=== PATIENT | male | born 1965 | race Caucasian/White ===

== ENCOUNTER 2017-07-28 22:18 | Inpatient (IN) | payer BC ==
[~2017-07-28 22:18] MED LIST: LORazepam 2 MG/ML VIAL ONE; WATER FOR INJ,STERILE 10 ML ONE; ZIPRASIDONE MESYLA 20 MG/VIAL IM ONE
[2017-07-28 22:55] LABS: Absolute Lymphocytes (CBC) 2.4 K/uL (0.7-4.9); Absolute Monocytes 0.4 K/uL (0.1-1.3); Absolute Neutrophil 3.5 K/uL (1.8-8.0); Basophils % 1.1 % (0-1.3); Eosinophils % 5.6 % (0-4.4); Hematocrit 45.8 % (39.6-49.0); Lymphocytes % 35.2 % (15.3-44.8); MCH 30.6 pg (27.0-35.0); MCV 90.3 fL (80-100); MPV 8.4 fL (7.6-11.3); Monocytes % 6.3 % (3.3-12.3); RBC Red Blood Cell Count 5.07 M/uL (4.33-5.43)
[2017-07-28 23:05] LABS: Protime INR 0.9
[2017-07-28 23:08] LABS: Potassium 3.7 mEq/L (3.6-5.0)
[2017-07-28] MEDS ORDERED: ASPIRIN 81 MG CHEWABLE TABLET ONE (23:08)
[2017-07-28] MEDS ORDERED: NITROGLYCERIN 0.4 MG/TAB SL ONE (23:09)
[2017-07-28 23:14] LABS: Albumin 4.6 g/dL (3.2-5.5); Bilirubin Direct 0.1 mg/dL (0-0.2); Bilirubin Total 0.5 mg/dL (0.3-1.2); Magnesium 1.9 mg/dL (1.8-2.5); Protein, Total 7.6 g/dL (6.0-8.3)
[2017-07-28 23:24] LABS: CKMB Creatine Kinase MB 20.3 ng/ml (0.3-4.0)
--- NOTE | 2017-07-28 23:28 | ER ---
Nurse's Notes [facility] Name: Blue Nettles Age: 52 yrs Sex: Male : 1965 Arrival Date: 07/28/2017 Time: 22:21 Bed 17 Private MD: Diagnosis: Non-ST elevation (NSTEMI) myocardial infarction Presentation: 07/28 22:36 Presenting complaint: Patient states: "I'm having chest pain for the past two day that ao comes and goes. Today is getting worst. I had a history of heart attacks and with two stents." Patient states pain is stabbing in the sternal area. Patient is negative for nausea and vomiting, but report vomiting two days ago. Transition of care: patient was not received from another setting of care. Onset of symptoms is unknown. Initial Sepsis Screen: Does the patient meet any 2 criteria? No. Patient's initial sepsis screen is negative. Does the patient have a suspected source of infection? No. Patient's initial sepsis screen is negative. Care prior to arrival: None. 22:36 Method Of Arrival: Ambulatory ao 22:36 Acuity: MAY 3 ao Triage Assessment: 22:42 General: Appears in no apparent distress. uncomfortable, Behavior is agitated. Pain: ao Complains of pain in chest Pain radiates to left arm Pain currently is 6 out of 10 on a pain scale. EENT: No signs and/or symptoms were reported regarding the EENT system. Neuro: Level of Consciousness is awake, alert, obeys commands, Oriented to person, place, time, situation, Appropriate for age Cafe Assistant are equal bilaterally Moves all extremities. Gait is steady, Speech is normal, Facial symmetry appears normal. Cardiovascular: Capillary refill < 3 seconds Patient's skin is warm and dry. Respiratory: Airway is patent Respiratory effort is even, unlabored, Respiratory pattern is regular, symmetrical. GI: Abdomen is non-distended. : No signs and/or symptoms were reported regarding the genitourinary system. Derm: No signs and/or symptoms reported regarding the dermatologic system. Musculoskeletal: No signs and/or symptoms reported regarding the musculoskeletal system. Historical: - Allergies: 22:41 No Known Allergies; ao - Home Meds: 22:41 None [Active]; ao - PMHx: 22:41 DUMONT; ao - PSHx: 22:41 stents X 2; ao - Immunization history:: Adult Immunizations up to date. - Social history:: Smoking status: Patient uses tobacco products, Patient uses alcohol, occasionally. only on a social basis. Patient/guardian denies using street drugs. Screenin:44 Abuse screen: Denies threats or abuse. Denies injuries from another. Nutritional ao screening: No deficits noted. Tuberculosis screening: No symptoms or risk factors identified. Fall Risk None identified. Assessment: 22:43 General: See triage assessment. ao 22:44 Pain: Pain began suddenly. ao 23:40 Reassessment: Patient appears in no apparent distress at this time. No changes from ao previously documented assessment. Patient and/or family updated on plan of care and expected duration. Pain level reassessed. Patient is alert, oriented x 3, equal unlabored respirations, skin warm/dry/pink. Patient to stay in the Hospital. Patient agree with the POC. Dr Wheeler has talk to patient. Vital Signs: 22:39 BP 186 / 106; Pulse 95; Resp 20; Temp 97.6(O); Pulse Ox 98% on R/A; Weight 99.79 kg ao (R); Height 6 ft. 3 in. (190.50 cm) (R); Pain 6/10; 23:40 BP 156 / 87; Pulse 80; Resp 16; Pulse Ox 97% on R/A; Pain 0/10; ao 07/29 00:45 BP 140 / 78; Pulse 68; Resp 16; Pulse Ox 98% on R/A; Pain 0/10; ao 07/28 22:39 Body Mass Index 27.50 (99.79 kg, 190.50 cm) ao ED Course: 07/28 22:21 Patient arrived in ED. es 22:29 Jarrett Velázquez, RN is Primary Nurse. ao 22:36 Rogelio Wheeler MD is Attending Physician. tw4 22:39 Triage completed. ao 22:39 Arm band placed on right wrist. Patient placed in an exam room, on a stretcher, on ao oxygen, on desk monitor, on pulse oximetry. 22:44 Patient has correct armband on for positive identification. teletypesetter monitor on. Pulse ao ox on. NIBP on. 22:44 Patient maintains SpO2 saturation greater than 95% on room air. ao 22:45 Inserted saline lock: 20 gauge in right antecubital area, using aseptic technique. ao ,using aseptic technique. By JAMISON Hutchins Blood collected. 22:52 X-ray completed. Portable x-ray completed in exam room. Patient tolerated procedure ag1 well. 22:54 XRAY Chest (1 view) In Process Unspecified. EDMS 23:25 Notified ED physician of a critical lab result(s). CKMB 20.3 Troponin 0.50. la1 23:26 Dennis Crowe MD is Hospitalizing Provider. tw4 07/29 01:12 No provider procedures requiring assistance completed. Patient admitted, IV remains in ao place. Administered Medications: 07/28 23:11 Drug: Aspirin Chewable Tablet 324 mg Route: PO; ao 23:47 Follow up: Response: No adverse reaction ao 23:12 Drug: Nitroglycerin 0.4 mg Route: Sublingual; ao 23:47 Follow up: Response: Pain is decreased; Pain is decreased. Patient didnt required a 3rd ao dose 23:46 Drug: Lovenox 1 mg/kg Route: Sub-Q; Site: abdomen; ao 07/29 00:50 Follow up: Response: No adverse reaction ao 07/28 23:47 Drug: Lopressor 5 mg Route: IVP; Site: right antecubital; ao 07/29 00:04 Drug: Lopressor 5 mg Route: IVP; Site: right antecubital; ao 00:15 Drug: Lopressor 5 mg Route: IVP; Site: right antecubital; ao 00:50 Follow up: Response: No adverse reaction ao Outcome: 07/28 23:27 Decision to Hospitalize by Provider. tw4 07/29 01:13 Admitted to Tele accompanied by tech, room 415, with chart, Report called to JAMISON Fairbanks Condition: stable Instructed on the need for admit. 01:23 Patient left the ED. ao Signatures: Dispatcher [employer] EDMS Penny Youssef Lee RN RN Twyla Liang 1 Jarrett Velázquez RN RN ao Wadley, Terrence, MD MD tw4
--- NOTE | 2017-07-28 23:28 | EDPHYS ---
Physician Documentation [facility] Name: Blue Nettles Age: 52 yrs Sex: Male : 1965 Arrival Date: 07/28/2017 Time: 22:21 Bed 17 Private MD: ED Physician Rogelio Wheeler HPI: 07/29 00:06 This 52 yrs old Male presents to ER via Ambulatory with complaints of Chest tw4 Pain. 00:06 The patient or guardian reports chest pain that is located primarily in the anterior tw4 chest wall, left. Onset: today. The pain does not radiate. Associated signs and symptoms: Pertinent positives: dizziness, syncope. The chest pain is described as crushing. Duration: The patient or guardian reports a single episode, that is still ongoing, but improving. Modifying factors: The symptoms are alleviated by nothing. the symptoms are aggravated by nothing. Severity of pain: At its worst the pain was severe in the emergency department the pain has improved is a 2 / 10. The patient has experienced a previous episode, and the symptoms today are exactly the same, similar symtpoms when pt had acute [place]. Historical: - Allergies: 07/28 22:41 No Known Allergies; ao - Home Meds: 22:41 None [Active]; ao - PMHx: 22:41 DUMONT; ao - PSHx: 22:41 stents X 2; ao - Immunization history:: Adult Immunizations up to date. - Social history:: Smoking status: Patient uses tobacco products, Patient uses alcohol, occasionally. only on a social basis. Patient/guardian denies using street drugs. ROS: 07/29 00:06 Constitutional: Negative for fever, chills, and weight loss, Respiratory: Negative for tw4 shortness of breath, cough, wheezing, and pleuritic chest pain, Abdomen/GI: Negative for abdominal pain, nausea, vomiting, diarrhea, and constipation, Back: Negative for injury and pain, MS/Extremity: Negative for injury and deformity, Skin: Negative for injury, rash, and discoloration, Neuro: Negative for headache, weakness, numbness, tingling, and seizure. Cardiovascular: Positive for chest pain, Negative for edema, orthopnea, palpitations. Exam: 00:06 Constitutional: This is a well developed, well nourished patient who is awake, alert, tw4 and in no acute distress. Head/Face: Normocephalic, atraumatic. Chest/axilla: Normal chest wall appearance and motion. Nontender with no deformity. No lesions are appreciated. Cardiovascular: Regular rate and rhythm with a normal S1 and S2. No gallops, murmurs, or rubs. Normal PMI, no JVD. No pulse deficits. Respiratory: Lungs have equal breath sounds bilaterally, clear to auscultation and percussion. No rales, rhonchi or wheezes noted. No increased work of breathing, no retractions or nasal flaring. Abdomen/GI: Soft, non-tender, with normal bowel sounds. No distension or tympany. No guarding or rebound. No evidence of tenderness throughout. Back: No spinal tenderness. No costovertebral tenderness. Full range of motion. MS/ Extremity: Pulses equal, no cyanosis. Neurovascular intact. Full, normal range of motion. Neuro: Awake and alert, GCS 15, oriented to person, place, time, and situation. Cranial nerves II-XII grossly intact. Motor strength 5/5 in all extremities. Sensory grossly intact. Cerebellar exam normal. Normal gait. 00:06 ECG was reviewed by the Attending Physician. Vital Signs: 07/28 22:39 BP 186 / 106; Pulse 95; Resp 20; Temp 97.6(O); Pulse Ox 98% on R/A; Weight 99.79 kg ao (R); Height 6 ft. 3 in. (190.50 cm) (R); Pain 6/10; 23:40 BP 156 / 87; Pulse 80; Resp 16; Pulse Ox 97% on R/A; Pain 0/10; ao 07/29 00:45 BP 140 / 78; Pulse 68; Resp 16; Pulse Ox 98% on R/A; Pain 0/10; ao 07/28 22:39 Body Mass Index 27.50 (99.79 kg, 190.50 cm) ao MDM: 07/28 22:36 Patient medically screened. tw4 07/29 00:09 Differential diagnosis: acute pericarditis, anxiety, coronary artery disease pulmonary tw4 embolus, thoracic aortic disection. Data reviewed: vital signs, nurses notes. Data interpreted: Pulse oximetry: Interpretation: normal. Test interpretation: by ED physician or midlevel provider: ECG. Counseling: I had a detailed discussion with the patient and/or guardian regarding: the historical points, exam findings, and any diagnostic results supporting the discharge/admit diagnosis, lab results. Physician consultation: Dennis Crowe MD regarding admission, to the telemetry unit. need to come to ED to see patient, and will see patient in ED. Admission orders: after a detailed discussion of the patient's condition and case, the admit orders are written by me. ED course: Pt given aspirin, Lovenox, beta blockers and nitroglycerin in the ED states that he feels better. 07/28 22:36 Order name: Basic Metabolic Panel 07/28 22:36 Order name: BNP; Complete Time: 23:21 07/28 22:36 Order name: CBC with Diff; Complete Time: 23:21 07/28 22:36 Order name: Ckmb 07/28 22:36 Order name: CPK 07/28 22:36 Order name: LFT's 07/28 22:36 Order name: Magnesium 07/28 22:36 Order name: PT-INR 07/28 22:36 Order name: Ptt, Activated 07/28 22:36 Order name: Troponin (emerg Dept Use Only) 07/28 22:36 Order name: XRAY Chest (1 view) 07/28 22:36 Order name: EKG; Complete Time: 22:37 07/28 22:36 Order name: Cardiac monitoring; Complete Time: 23:07 07/28 22:36 Order name: EKG - Nurse/Tech; Complete Time: 23:07 07/28 22:36 Order name: IV Saline Lock; Complete Time: 23:07 07/28 22:36 Order name: Labs collected and sent; Complete Time: 23:07 07/28 22:36 Order name: O2 Per Protocol; Complete Time: 23:07 07/28 22:36 Order name: O2 Sat Monitoring; Complete Time: 23:07 07/28 22:36 Order name: Urine Dipstick-Ancillary (obtain specimen); Complete Time: 01:12 tw4 EC:06 Rate is 96 beats/min. Rhythm is regular. QRS [place] is Normal. AL interval is normal. QRS tw4 interval is normal. QT interval is normal. No Q waves. T waves are Inverted in leads V4, V5, V6. No ST changes noted. Clinical impression: Lateral [place] - age indeterminate. Interpreted by me. Reviewed by me. Administered Medications: 07/28 23:11 Drug: Aspirin Chewable Tablet 324 mg Route: PO; ao 23:47 Follow up: Response: No adverse reaction ao 23:12 Drug: Nitroglycerin 0.4 mg Route: Sublingual; ao 23:47 Follow up: Response: Pain is decreased; Pain is decreased. Patient didnt required a 3rd ao dose 23:46 Drug: Lovenox 1 mg/kg Route: Sub-Q; Site: abdomen; ao 07/29 00:50 Follow up: Response: No adverse reaction ao 07/28 23:47 Drug: Lopressor 5 mg Route: IVP; Site: right antecubital; ao 07/29 00:04 Drug: Lopressor 5 mg Route: IVP; Site: right antecubital; ao 00:15 Drug: Lopressor 5 mg Route: IVP; Site: right antecubital; ao 00:50 Follow up: Response: No adverse reaction ao Disposition: 07/28/17 23:27 Hospitalization ordered by Dennis Crowe for Inpatient Admission. Preliminary diagnosis is Non-ST elevation (NSTEMI) myocardial infarction. - Bed requested for Telemetry/MedSurg (Inpatient). - Status is Inpatient Admission. ao - Condition is Fair. - Problem is an ongoing problem. - Symptoms are unchanged. UTI on Admission? No Signatures: Dispatcher [employer] Lidia Villagran RN RN kl Ortiz, Alex, RN RN ao Wadley, Terrence, MD MD tw4
[2017-07-28] MEDS ORDERED: METOPROLOL TARTRATE 5 MG/5 ML INJ IV ONE (23:40)
[2017-07-28] MEDS ORDERED: ENOXAPARIN 100 MG/ML SYR SQ ONE (23:40)
--- NOTE | 2017-07-29 00:14 | P.HP ---
Certification for Inpatient Patient admitted to: Inpatient With expected LOS: >2 Midnights Practitioner: I am a practitioner with admitting privileges, knowledge of patient current condition, hospital course, and medical plan of care. Services: Services provided to patient in accordance with Admission requirements found in Title 42 Section 412.3 of the Code of Federal Regulations Patient History Date of Service: 07/28/17 Reason for admission: NSTEMI History of Present Illness: Mr Nettles is a 52 years old male with history of HTN, CAD S/P SC with stent placement about 8 years ago, tobacco abuse, hypercholesterolemia, who start with chest pain 2 days ago. The pain is comes and go, pressure like, similar to previous SC, lasting for about 2 hours, intensity 8/10, associated with nausea, SOB and diaphoretic episodes. Today, the pain was more severe, and came to ED for evaluation. He has not been taking his medication for a wide. At arrival he received nitro SL x 2, subsequently, chest pain resolved. Initial troponin I 0.58, EKG shows ST depression on anterolateral leads. Home medications list reviewed: Yes - Past Medical/Surgical History -: CAD -: dyslipidemia -: HTN -: tobacco abuse -: stenting - Family History Family History: Reviewed- Non-Contributory - Social History Smoking Status: Current every day smoker Counseled patient to stop smoking for: less than 10 minutes Smoking therapy provided: Yes Patient receptive to therapy: Yes Review of Systems 10-point ROS is otherwise unremarkable Physical Examination - Physical Exam General: Alert, In no apparent distress HEENT: Atraumatic, PERRLA, Mucous membr. moist/pink, EOMI, Sclerae nonicteric Neck: Supple, 2+ carotid pulse no bruit, No LAD, Without JVD or thyroid abnormality Respiratory: Clear to auscultation bilaterally, Normal air movement Cardiovascular: Regular rate/rhythm, Normal S1 S2 Gastrointestinal: Normal bowel sounds, No tenderness Musculoskeletal: No tenderness Integumentary: No rashes Neurological: Normal speech, Normal strength at 5/5 x4 extr, Normal tone, Normal affect Lymphatics: No axilla or inguinal lymphadenopathy - Studies Laboratory Data (last 24 hrs) 07/28/17 22:40: PT 10.6, INR 0.90, APTT 27.4 07/28/17 22:40: WBC 6.7, Hgb 15.5, Hct 45.8, Plt Count 252 07/28/17 22:40: B-Natriuretic Peptide 57 07/28/17 22:40: Sodium 139, Potassium 3.7, BUN 14, Creatinine 1.07, Glucose 122 H, Magnesium 1.9, Total Bilirubin 0.5, AST 35, ALT 30, Alkaline Phosphatase 80 Assessment and Plan - Problems (Diagnosis) (1) CAD (coronary artery disease) Current Visit: Yes Status: Acute Qualifiers: Coronary Disease-Associated Artery/Lesion type: [place] artery [place] vs. transplanted heart: [place] heart Associated angina: with unstable angina Qualified Code(s): I25.110 - Atherosclerotic heart disease of [place] coronary artery with unstable angina pectoris (2) NSTEMI (non-ST elevated myocardial infarction) Current Visit: Yes Status: Acute (3) Hypercholesterolemia Current Visit: Yes Status: Acute (4) HTN (hypertension) Current Visit: Yes Status: Acute Qualifiers: Hypertension type: essential hypertension Qualified Code(s): I10 - Essential (primary) hypertension (5) Tobacco abuse Current Visit: Yes Status: Acute - Plan Mr Nettles will be admitted to the hospital due to typical chest pain with increased cardiac markers and abnormal EKG, consistent with a NSTEMI. Will start full dose lovenox, ASA, Brilinta loading dose, statins, wave beta kwesi due to HR in the lower side. Consult cardiology team. - Advance Directives Does patient have a Living Will: No Does patient have a Durable POA for Healthcare: No - Code Status/Comfort Care Code Status Assessed: Yes Code Status: Full Code
[2017-07-29] MEDS ORDERED: ACETAMINOPHEN 500 MG TAB PO PRN (01:28)
[2017-07-29] MEDS ORDERED: ONDANSETRON 4 MG/2 ML VIAL IV PRN (01:28)
[2017-07-29] MEDS ORDERED: TICAGRELOR 90 MG TABLET PO ONE ×3 (01:28→12:48)
[2017-07-29 01:36] VITALS: BMI 27.2
--- NOTE | 2017-07-29 07:02 | EKG ---
Test Date: 2017-07-28 Test Time: 22:32:57 Curtain Roller Assembler: [place] MEASUREMENT RESULTS: Intervals: Rate: 96 OK: 162 QRSD: 70 QT: 346 QTc: 437 [place]: P: 56 OK: 162 QRS: -1 T: 213 INTERPRETIVE STATEMENTS: Normal sinus rhythm Septal infarct, age undetermined ST & T wave abnormality, consider lateral ischemia Abnormal ECG No previous ECG available for comparison Electronically Signed On 07-29-17 07:01:15 CDT by Aries Rivas
--- NOTE | 2017-07-29 08:11 | RAD REPORT ---
EXAM DESCRIPTION: Elsa Single View07/28/2017 10:53 pm CLINICAL HISTORY: Chest pain COMPARISON: none FINDINGS: The lungs appear clear of acute infiltrate. The heart is normal size IMPRESSION: No acute abnormalities displayed
[2017-07-29] MEDS ORDERED: ASPIRIN 81 MG CHEWABLE TABLET PO SCH (09:00)
[2017-07-29] MEDS: ASPIRIN 81 MG CHEWABLE TABLET PO SCH (09:00)
[2017-07-29] MEDS: NICOTINE 21 MG/PAT TD SCH (09:00)
[2017-07-29] MEDS ORDERED: ENOXAPARIN 40 MG/0.4 ML SQ SCH (09:00)
[2017-07-29] MEDS ORDERED: NA CHLORIDE 0.9% 500 ML ONE (11:42)
[2017-07-29] MEDS ORDERED: ATROPINE SULF 1 MG/10 ML SYR IV ONE (11:43)
[2017-07-29] MEDS ORDERED: HEPARIN 5000 UNIT/ML 1 ML VIAL ONE (11:43)
[2017-07-29] MEDS ORDERED: NICARDIPINE HCL 25 MG/10 ML IV ONE (11:43)
[2017-07-29] MEDS ORDERED: NA CHLORIDE 0.9% 50 ML ONE (11:43)
[2017-07-29] MEDS ORDERED: MIDAZOLAM HCL 2 MG/2 ML INJ ONE ×3 (11:53→12:05)
--- NOTE | 2017-07-29 13:05 | CON ---
Chief Complaint: Chest pain. History Of Present Illness: Mr. Nettles started having chest pain several weeks ago. He believed it was indigestion, did not seek medical attention until he had 2 hours or more long episode of the c hest pain, tightness, pressure, squeezing, sweating, feeling nauseated. He came to the ER. Electroc ardiograms were not suggestive of an acute infarction, but he had evidence of an old septal infarctio n in 2009. He did have an CO. He was treated with a [facility] an emergency blue nt. He had 2 stents placed in his LAD for ST-elevation CO. Since then, he has dropped out of [employer] coverage. He took medicines for several years, underwent a cardiac cath in about 2012 and was told that his stents look good, but he had disease in small vessels that were too small to get a stent. He has been under medical therapy until about a year ago when he quit taking all of his medicines and then came to our emergency room. He is on no medicines now. Reports no allergies. He is a regular tobacco user. He uses modest amount of alcohol. No illegal drugs. He says the reason he gets off medicines because his job requires to move a lot, so he will often lose contact with the doctor and saniya mayes dismissed from her care because of poor compliance. He does not make much of an effort to find new doctors wherever he is. He is on no outpatient medications. Since being in the hospital, he has re ceived Lovenox, Lipitor, aspirin, and Brilinta. He is not having any chest pain now. His troponins have gone up to over 3. Physical Examination: HEENT: Normal. General: He is alert, oriented, pleasant, cooperative, not in distress. Lungs: Clear. Heart: Within normal limits. Extremities: Normal. No cyanosis, clubbing, or edema. Laboratory Data: Complete blood count is normal. Creatinine is 1.07. Highest troponin is 3.25. Impression: The patient has had a non-ST elevation myocardial infarction. He needs to have a cardia c cath, probably another intervention. We will do that today. We will withhold any further Lovenox. ALEIDA/YAAKOVL Voice ID: [id number] Report ID: [id number]
--- NOTE | 2017-07-29 16:34 | P.PN ---
Subjective Date of Service: 07/29/17 Chief Complaint: NSTEMI Pt seen and examined with RN. Chart reviewed and case d/w with Cardiology. Currently S/p cardiac cath with stent placement in LAD. No c/o at this time. Tolerated procedure well. Review of Systems General: As per HPI Physical Examination - Vital Signs Temperature: 97.9 F Blood Pressure: 150/75 Pulse: 70 Respirations: 16 Pulse Ox (%): 97 - Physical Exam General: Alert, In no apparent distress HEENT: Atraumatic, PERRLA, EOMI Neck: Supple, JVD not distended Respiratory: Clear to auscultation bilaterally, Normal air movement Cardiovascular: Regular rate/rhythm, Normal S1 S2, Other (Inguinal area tapped. ) Gastrointestinal: Normal bowel sounds, No tenderness Musculoskeletal: No tenderness Integumentary: No rashes Neurological: Normal speech, Normal tone, Normal affect Lymphatics: No axilla or inguinal lymphadenopathy - Studies Laboratory Data (last 24 hrs) 07/28/17 22:40: PT 10.6, INR 0.90, APTT 27.4 07/28/17 22:40: WBC 6.7, Hgb 15.5, Hct 45.8, Plt Count 252 07/28/17 22:40: B-Natriuretic Peptide 57 07/28/17 22:40: Sodium 139, Potassium 3.7, BUN 14, Creatinine 1.07, Glucose 122 H, Magnesium 1.9, Total Bilirubin 0.5, AST 35, ALT 30, Alkaline Phosphatase 80 Medications List Reviewed: Yes Assessment & Plan - Problems (Diagnosis) (1) NSTEMI (non-ST elevated myocardial infarction) Onset Date: 07/29/17 Current Visit: Yes Status: Acute Plan: Chest Pain with Elevated Troponin and Nonspecific EKG changes. -S/P cardiac cath now. -Stent Placement in the LAD. -Currently on ASA, Brilinta, Valsartan, BB and Lipitor -Cardiology consulted. Reccs appreciated. (2) CAD (coronary artery disease) Onset Date: 07/29/17 Current Visit: Yes Status: Chronic Qualifiers: Coronary Disease-Associated Artery/Lesion type: [place] artery [place] vs. transplanted heart: [place] heart Associated angina: with unstable angina Qualified Code(s): I25.110 - Atherosclerotic heart disease of [place] coronary artery with unstable angina pectoris (3) HTN (hypertension) Onset Date: 07/29/17 Current Visit: Yes Status: Chronic Qualifiers: Hypertension type: essential hypertension Qualified Code(s): I10 - Essential (primary) hypertension (4) Hypercholesterolemia Onset Date: 07/29/17 Current Visit: Yes Status: Chronic (5) Tobacco abuse Onset Date: 07/29/17 Current Visit: Yes Status: Chronic Discharge Plan: Home Plan to discharge in: 48 Hours - Code Status/Comfort Care Code Status Assessed: Yes Critical Care: No
[2017-07-29] MEDS: METOPROLOL TAR 25 MG TAB PO SCH (17:07)
[2017-07-29] MEDS ORDERED: ACETAMINOPHEN 325 MG TABLET PO PRN (18:37)
[2017-07-29] MEDS ORDERED: NITROGLYCERIN 0.4 MG/TAB SL PRN (18:39)
[2017-07-29] MEDS ORDERED: ATORVASTATIN 80 MG TAB PO SCH (21:00)
[2017-07-29] MEDS: NA CHLORIDE 0.9% 1,000 ML IV SCH (21:04)
[2017-07-29] MEDS: TICAGRELOR 90 MG TABLET PO SCH (21:05)
[2017-07-29 23:20] VITALS: O2SAT 99
--- NOTE | 2017-07-30 00:06 | OP ---
Surgeon: Aries Rivas MD Additional Attending Physician: Dennis Denton M.D. Procedures: Left heart catheterization, coronary left ventricular angiography, coronary angioplasty of mid left anterior descending stenosis, and 90% stenosis just proximal to his old stent was present . There were thrombus, haziness. It was successfully stented with a 3.5 x 20 stent. Procedure Findings: The patient has diffuse moderate disease in the circumflex and right coronary. The LAD is fairly healthy looking, except in its midportion just proximal to an old stent. The left main is free of disease. After the stent, there was 0% residual stenosis. Left ventricular angiogra m was within normal limits. Left ventricular end-diastolic pressure was normal. 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 Right radial artery was used. The tissues above the artery were anesthetized with 1% lidocaine. A 21-gauge needle was used to enter the artery, a 0.021 inch diameter guidewire, modified Seldinger technique, 6-[place] Terumo sheath. Once it was in place, it was flushed and a radial cocktail was gi rosario consisting of nicardipine, heparin, and nitroglycerin. It was given intra-arterially. We guided a diagnostic TIG catheter into the ascending aorta using a Terumo Glidewire with a short radius J-ti p and fluoroscopy. We used this catheter to angiogram right and left coronaries, left ventricle. We used a 260 cm exchange J-wire to exchange the TIG catheter for a guide catheter. Angiomax was given and activated clotting time was demonstrated to be more than 300 seconds. The guide catheter was an Ikari left 4 with side holes. We predilated with the balloon with 3.0 x 15 Emerge. We used the Cou gar 0.014 inch diameter guidewire to cross the lesion. This gave us excellent support. After predil ation, it was without much resistance, but the stent went into place. It was a 3.5 x 20 Synergy, inf lated to 14 atmospheres. There were no complications from the procedure. Post stent angiogram showe d no significant stenosis in the LAD. Catheters and wires were removed. The catheter was removed ov er an exchange length J-wire. The sheath was flushed, removed, and a TR band was used to close the a rteriotomy. Estimated Blood Loss: 20 cc. Complications: None. Manager Transfusion: Sury Thompson. GILDA Voice ID: [id number] Report ID: [id number]
[2017-07-30 04:58] LABS: Absolute Monocytes 0.6 K/uL (0.1-1.3); Absolute Neutrophil 4.8 K/uL (1.8-8.0); Basophils % 0.9 % (0-1.3); Eosinophils % 4.6 % (0-4.4); Hematocrit 44.4 % (39.6-49.0); Lymphocytes % 25.7 % (15.3-44.8); MCH 30.3 pg (27.0-35.0); MCV 90.5 fL (80-100); MPV 8.7 fL (7.6-11.3); Monocytes % 7.5 % (3.3-12.3)
[2017-07-30] MEDS: METOPROLOL TAR 25 MG TAB PO SCH (05:57)
[2017-07-30] MEDS: ASPIRIN 81 MG CHEWABLE TABLET PO SCH (08:52)
[2017-07-30] MEDS: NICOTINE 21 MG/PAT TD SCH (08:52)
[2017-07-30 08:54] VITALS: BP 137/82
[2017-07-30] MEDS ORDERED: VALSARTAN 160 MG TAB PO SCH (09:00)
[2017-07-30] MEDS: NA CHLORIDE 0.9% 1,000 ML IV SCH (09:18)
[2017-07-30 10:17] VITALS: TEMP 97.1
[2017-07-30] MEDS: TICAGRELOR 90 MG TABLET PO SCH (10:39)
--- NOTE | 2017-07-30 11:19 | PN ---
Subjective: Mr. Nettles seems to be doing well. He has mild bruising around his radial cath site. Normal pulses. No pain. No chest pain. Troponins have gone up as high as 3. All of his symptoms resolved after the stent was placed in his mid LAD. I think, he is going to do fine. We will disch arge him today. He will take aspirin Brilinta, Lipitor, metoprolol, and valsartan. He seems to unde rstand the medicines. Prescriptions have been sent to [facility]. He will get his [facility] medicines before being discharged. Whenever Dr. Willoughby is comfortable to discharge, I think he can be discharged from the cardiology standpoint. ALEIDA/SUSANA Voice ID: [id number] Report ID: [id number]
--- NOTE | 2017-07-30 17:47 | P.DS ---
Admission Date: 07/28/17 Discharge Date: 07/30/17 Disposition: ROUTINE DISCHARGE Discharge Condition: GOOD Reason for Admission: NSTEMI Consultations: Cardiology Procedures: Cardiac Catherization with Stent placement in the LAD - Problems (1) NSTEMI (non-ST elevated myocardial infarction) Onset Date: 07/29/17 Status: Acute (2) CAD (coronary artery disease) Onset Date: 07/29/17 Status: Chronic Qualifiers: Coronary Disease-Associated Artery/Lesion type: [place] artery [place] vs. transplanted heart: [place] heart Associated angina: with unstable angina Qualified Code(s): I25.110 - Atherosclerotic heart disease of [place] coronary artery with unstable angina pectoris (3) HTN (hypertension) Onset Date: 07/29/17 Status: Chronic Qualifiers: Hypertension type: essential hypertension Qualified Code(s): I10 - Essential (primary) hypertension (4) Hypercholesterolemia Onset Date: 07/29/17 Status: Chronic (5) Tobacco abuse Onset Date: 07/29/17 Status: Chronic Brief History of Present Illness: Mr Nettles is a 52 years old male with history of HTN, CAD S/P OH with stent placement about 8 years ago, tobacco abuse, hypercholesterolemia, who start with chest pain 2 days ago. The pain is comes and go, pressure like, similar to previous OH, lasting for about 2 hours, intensity 8/10, associated with nausea, SOB and diaphoretic episodes. Today, the pain was more severe, and came to ED for evaluation. He has not been taking his medication for a wide. At arrival he received nitro SL x 2, subsequently, chest pain resolved. Initial troponin I 0.58, EKG shows ST depression on anterolateral leads. Hospital Course: Overall during the hospital stay patient remained stable Patient was initially admitted to the hospital for NSTEMI. Was intially placed on ACS protocol. Cardiology was consulted and patient had a cardiac catheterization done here in the hospital with a stent placement in the LAD. Please refer to the report for further details. The patient tolerated the procedure well and did well overall overnight as well. Patient was then continued on aspirin, brilinta, Lipitor and a beta-kwesi. Patient was asked to follow up with cardiology in outpatient basis in about 1-2 weeks post discharge as well. Patient was then discharged home under stable condition and was educated extensively on smoking cessation and alcohol abstinence and compliance with medication. Vital Signs/Physical Exam: Temp Pulse Resp BP Pulse Ox 97.1 F 69 18 137/82 98 07/30/17 08:00 07/30/17 08:51 07/30/17 08:00 07/30/17 08:51 07/30/17 08:00 General: Alert, In no apparent distress HEENT: Atraumatic, PERRLA, EOMI Neck: Supple, JVD not distended Respiratory: Clear to auscultation bilaterally, Normal air movement Cardiovascular: Regular rate/rhythm, Normal S1 S2 Gastrointestinal: Normal bowel sounds, No tenderness Musculoskeletal: No tenderness Integumentary: No rashes Neurological: Normal speech, Normal tone, Normal affect Lymphatics: No axilla or inguinal lymphadenopathy Laboratory Data at Discharge: WBC 7.8 K/uL (4.3-10.9) D 07/30/17 03:39 Hgb 14.9 g/dL (13.6-17.9) 07/30/17 03:39 Hct 44.4 % (39.6-49.0) 07/30/17 03:39 Plt Count 228 K/uL (152-406) 07/30/17 03:39 PT 10.6 SECONDS (9.5-12.5) 07/28/17 22:40 INR 0.90 07/28/17 22:40 APTT 27.4 SECONDS (24.3-36.9) 07/28/17 22:40 Sodium 137 mEq/L (135-145) 07/30/17 03:39 Potassium 4.0 mEq/L (3.6-5.0) 07/30/17 03:39 BUN 17 mg/dL (6-20) 07/30/17 03:39 Creatinine 0.95 mg/dL (0.61-1.24) 07/30/17 03:39 Glucose 102 mg/dL (65-120) 07/30/17 03:39 Magnesium 1.9 mg/dL (1.8-2.5) 07/28/17 22:40 Total Bilirubin 0.5 mg/dL (0.3-1.2) 07/28/17 22:40 AST 35 IU/L (10-42) 07/28/17 22:40 ALT 30 IU/L (10-60) 07/28/17 22:40 Alkaline Phosphatase 80 IU/L (42-121) 07/28/17 22:40 Troponin I 6.28 ng/mL (<0.03) H* D 07/29/17 09:30 B-Natriuretic Peptide 57 pg/ml (<=100) 07/28/17 22:40 Triglycerides 170 mg/dL (35-160) H 07/30/17 03:39 Cholesterol 271 mg/dL (<200) H 07/30/17 03:39 HDL Cholesterol 42 mg/dL (27-67) 07/30/17 03:39 Cholesterol/HDL Ratio 6.45 07/30/17 03:39 Home Medications: Atorvastatin Calcium [Lipitor] 80 mg PO BEDTIME #30 tab 07/30/17 Metoprolol Tartrate [Lopressor*] 25 mg PO BID 6AM 6PM #60 tab 07/30/17 Nitroglycerin [Nitrostat*] 0.4 mg SL UD PRN #1 bottle 07/30/17 Ticagrelor [Brilinta*] 90 mg PO BID #60 tablet 07/30/17 Valsartan [Diovan*] 160 mg PO DAILY #30 tab 07/30/17 New Medications: Atorvastatin Calcium [Lipitor] 80 mg PO BEDTIME #30 tab Metoprolol Tartrate [Lopressor*] 25 mg PO BID 6AM 6PM #60 tab Nitroglycerin [Nitrostat*] 0.4 mg SL UD PRN #1 bottle PRN Reason: Chest Pain Ticagrelor [Brilinta*] 90 mg PO BID #60 tablet Valsartan [Diovan*] 160 mg PO DAILY #30 tab Diet: Regular Activity: Ad harry Followup: Aries Rivas MD [ACTIVE - CAN ADMIT] - 1-2 Weeks (Follow up in 2 weeks, call to schedule an appointment)
== END 2017-07-30 10:43 | disposition home or self-care (01) | DRG 247 ==
LOC: ER 22:18 → ERHOLD 23:38 → 4TH 07-29 00:45
PROVIDERS: ADMIT Internal Medicine; ATTEND Family Medicine
PROC: 027034Z Dilation of Coronary Artery, One Artery with Drug-eluting Intraluminal Device, Percutaneous Approach (ICD-10-PCS; principal; 2017-07-29)
DX: I21.4 Non-ST elevation (NSTEMI) myocardial infarction (principal); E78.00 Pure hypercholesterolemia, unspecified; E78.5 Hyperlipidemia, unspecified; I10 Essential (primary) hypertension; I25.110 Atherosclerotic heart disease of native coronary artery with unstable angina pectoris; Z72.0 Tobacco use; I25.2 Old myocardial infarction
CPT/HCPCS: 36415; 71045; 80048; 80061; 80076; 82550; 82553; 83735; 83880; 84484; 85025; 85347; 85610; 85730; 92928; 93005; 93458; 96372; 96374; 99285; C1725; C1893; J0583; J1644; J1650; J2250; J3486; J7030